=== PATIENT | male | born 1950 | race Caucasian/White ===

== ENCOUNTER 2017-02-16 18:38 | Emergency (ER) | payer MEDICARE, OTHER ==
[2017-02-16] MEDS ORDERED: Diphtheria,Pertussis(Acell),Tetanus Vaccine 0.5 ML Syringe IM ONE (19:07)
--- NOTE | 2017-02-16 19:15 | EDM.PDOC ---
ED HPI GENERAL MEDICAL PROBLEM - General Chief Complaint: Laceration Stated Complaint: cut left thumb Time Seen by Provider: 02/16/17 18:45 Source of Information: Reports: Patient History Limitations: Reports: No Limitations - History of Present Illness INITIAL COMMENTS - FREE TEXT/NARRATIVE: Patient in after cutting his left thumb with the buckle on a tie down. He denies numbness or tingling to the thumb. He has no other complaints. Last tetanus in 2009 per his report. Onset: Today Severity: Mild Improves with: Reports: Cold Therapy Associated Symptoms: Reports: No Other Symptoms - Related Data Allergies Allergy/AdvReac Type Severity Reaction Status Date / Time meloxicam [From Mobic] Allergy Rash Verified 02/16/17 19:08 Home Meds: Home Meds . [Unable to Verify Home Med List] 02/16/17 [History] ED ROS GENERAL - Review of Systems Review Of Systems: See Below Constitutional: Reports: No Symptoms HEENT: Reports: No Symptoms Respiratory: Reports: No Symptoms Cardiovascular: Reports: No Symptoms Endocrine: Reports: No Symptoms GI/Abdominal: Reports: No Symptoms : Reports: No Symptoms Musculoskeletal: Reports: No Symptoms Skin: Reports: Wound Neurological: Reports: No Symptoms Psychiatric: Reports: No Symptoms Hematologic/Lymphatic: Reports: No Symptoms Immunologic: Reports: No Symptoms ED EXAM, GENERAL - Physical Exam Exam: See Below Exam Limited By: No Limitations General Appearance: Alert, WD/WN, No Apparent Distress Extremities: Normal Inspection, Normal Range of Motion, Non-Tender, No Pedal Edema, Normal Capillary Refill Neurological: Alert, Oriented, CN II-XII Intact, Normal Cognition, Normal Gait, Normal Reflexes, No Motor/Sensory Deficits Skin Exam: Wound/Incision (2 cm linear wound) ED GENERAL MEDICAL PROCEDURES - Laceration/Wound Repair Left Proximal Finger Lac/wound length in cm: 2 (left proximal thumb) Appearance: Linear Distal NVT: Neuro & Vascular Intact, No Tendon Injury Anesthetic Type: Local Local Anesthesia - Lidocaine (Xylocaine): 1% Plain Local Anesthetic Volume: 4cc Skin Prep: Chlorhexidine (Hibiciens) Exploration/Debridement/Repair: Wound Explored, in a Bloodless Field, Explored to Base, No Foreign Material Found Closed with: Sutures Suture Size: 4-0 # of Sutures: 5 Suture Type: Interrupted Sterile Dressing Applied: Nurse Tetanus Status Addressed: Yes Complications: No Course - Orders/Labs/Meds Meds: Medications Discontinued Medications Generic Name Dose Route Start Last Admin Trade Name Kiah PRN Reason Stop Dose Admin Diphtheria/Tetanus/Acell Pertussis 0.5 ml 02/16/17 19:07 Adacel IM 02/16/17 19:08 .ONCE ONE Lidocaine HCl 5 ml 02/16/17 18:47 02/16/17 18:55 Xylocaine-Mpf 1% INJECT 02/16/17 18:48 5 ml ONETIME ONE Administration Departure - Departure Time of Disposition: 19:16 Disposition: Home, Self-Care 01 Clinical Impression: Laceration of left thumb without complication - Discharge Information Instructions: Laceration Care, Adult, [id number], Wound Infection, Easy-to- Read Additional Instructions: Keep your wound clean and dry. You may shower and wash it with soap and water. Do not submerge in water including dishwater, bathtub, hot tub, any bodies of water or swimming pools. This will introduce bacteria into the wound. Have the sutures removed in 10 days. Signs of infection have been included with your paperwork but can include fever over 101.5F, chills, increased redness, swelling, warmth to the wound site, pus like drainage from the site. Your tetanus site may become sore tomorrow and have some site redness from the injection Please follow up with your primary doctor as needed Call us with any questions or concerns. - Problem List & Annotations (1) Laceration of left thumb without complication SNOMED Code(s): 877883109 Code(s): S61.012A - LACERATION W/O FB OF LEFT THUMB W/O DAMAGE TO NAIL, INIT Status: Acute Priority: Low Qualifiers: Encounter type: initial encounter Qualified Code(s): S61.012A - Laceration without foreign body of left thumb without damage to nail, initial encounter - Assessment/Plan Assessment:: left thumb laceration Plan: Keep your wound clean and dry. You may shower and wash it with soap and water. Do not submerge in water including dishwater, bathtub, hot tub, any bodies of water or swimming pools. This will introduce bacteria into the wound. Have the sutures removed in 10 days. Signs of infection have been included with your paperwork but can include fever over 101.5F, chills, increased redness, swelling, warmth to the wound site, pus like drainage from the site. Your tetanus site may become sore tomorrow and have some site redness from the injection Please follow up with your primary doctor as needed Call us with any questions or concerns.
[2017-02-16 19:17] VITALS: BP 121/75
== END 2017-02-16 19:24 | disposition home or self-care (01) ==
LOC: VM.ED 18:38
DX: S61.012A Laceration without foreign body of left thumb without damage to nail, initial encounter (principal); Z88.8 Allergy status to other drugs, medicaments and biological substances; W45.8XXA Other foreign body or object entering through skin, initial encounter
CPT/HCPCS: 12001; 90471; 90715; 99282-GF-25; 99283

== ENCOUNTER 2021-01-16 17:11 | Emergency (ER) | payer MEDICARE, OTHER ==
[2021-01-16] MEDS ORDERED: Lidocaine 1% 30 ML SDV INJECT ONE (17:27)
[2021-01-16 17:53] VITALS: BP 110/54; PULSE 82
--- NOTE | 2021-01-16 18:59 | EDM.PDOC ---
ED HPI GENERAL MEDICAL PROBLEM - General Chief Complaint: Laceration Stated Complaint: LACERATION TO FINGER Time Seen by Provider: 01/16/21 17:20 Source of Information: Reports: Patient History Limitations: Reports: No Limitations - History of Present Illness INITIAL COMMENTS - FREE TEXT/NARRATIVE: Pt. presents to ER with complaints of laceration to lateral aspect of 5th digit R hand. Pt. states that he sustained the injury hammering in fence posts at his home. Pt. states that tetanus is up to date. Denies any numbness/tingling in distal portion of the extremity and denies any injury elsewhere. Onset: Today Onset Date: 01/16/21 Location: Reports: Upper Extremity, Right Severity: Mild Left Finger-Little Pain Score (Numeric/FACES): 5 - Related Data Allergies Allergy/AdvReac Type Severity Reaction Status Date / Time meloxicam [From MobNanoAntibiotics] Allergy Rash Verified 01/16/21 17:48 Home Meds: Home Meds . [Unable to Verify Home Med List] 02/16/17 [History] Past Medical History Cardiovascular History: Reports: High Cholesterol, Hypertension Musculoskeletal History: Reports: Back Pain, Chronic - Infectious Disease History Infectious Disease History: Reports: None - Past Surgical History HEENT Surgical History: Reports: Adenoidectomy, Tonsillectomy GI Surgical History: Reports: Appendectomy Musculoskeletal Surgical History: Reports: Other (See Below) Other Musculoskeletal Surgeries/Procedures:: neck fusion. elbow dislocation Social & Family History - Tobacco Use Tobacco Use Status *Q: Never Tobacco User ED ROS GENERAL - Review of Systems Review Of Systems: See Below Constitutional: Reports: No Symptoms HEENT: Reports: No Symptoms Respiratory: Reports: No Symptoms Cardiovascular: Reports: No Symptoms Endocrine: Reports: No Symptoms GI/Abdominal: Reports: No Symptoms : Reports: No Symptoms Musculoskeletal: Reports: Other (See HPI) Skin: Reports: No Symptoms Neurological: Reports: No Symptoms Psychiatric: Reports: No Symptoms Hematologic/Lymphatic: Reports: No Symptoms Immunologic: Reports: No Symptoms ED EXAM, SKIN/RASH Exam: See Below Exam Limited By: No Limitations General Appearance: Alert, WD/WN, No Apparent Distress Extremities: Normal Range of Motion, Normal Capillary Refill, Other (3 cm laceration to lateral aspect R little finger. CMS intact. ROM is within normal limits.) ED SKIN PROCEDURES - Laceration/Wound Repair Right Lateral Digit - 5th (Baby) Appearance: Subcutaneous Distal NVT: Neuro & Vascular Intact Local Anesthesia - Lidocaine (Xylocaine): 1% Plain Local Anesthetic Volume: 4cc Skin Prep: Chlorhexidine (Hibiciens), Saline Saline Irrigation (cc's): 1,000 Exploration/Debridement/Repair: Wound Explored Closed with: Sutures Lac/Wound length In cm: 3 Suture Size: 5-0 # of Sutures: 4 Suture Type: Nylon Course - Vital Signs Last Recorded V/S: Last Vital Signs Temp 36.9 C 01/16/21 17:15 Pulse 82 01/16/21 17:15 Resp 16 01/16/21 17:15 BP 110/54 L 01/16/21 17:15 Pulse Ox 94 L 01/16/21 17:15 - Orders/Labs/Meds Meds: Medications Discontinued Medications Generic Name Dose Route Start Last Admin Trade Name Kiah PRN Reason Stop Dose Admin Lidocaine HCl 30 ml 01/16/21 17:27 01/16/21 17:35 Lidocaine 1% 30 Ml Sdv INJECT 01/16/21 17:28 30 ml ONETIME ONE Administration Departure - Departure Time of Disposition: 19:05 Disposition: Home, Self-Care 01 Clinical Impression: Laceration - Discharge Information Instructions: Laceration Care, Adult Referrals: Susana Lieberman MD [Primary Care Provider] - Forms: ED Department Discharge Additional Instructions: Sutures out in 12-14 days. These can be removed in the clinic. Keep dressing on and laceration dry for 48 hours. Then, keep open to air as much as possible. Cover if you anticipate the area getting dirty. Return to ER/follow-up in clinic if you have any redness, swelling, or discharge from the area. Sepsis Event Note (ED) - Evaluation Sepsis Screening Result: No Definite Risk - Focused Exam Vital Signs: Vital Signs Temp Pulse Resp BP Pulse Ox 01/16/21 17:15 36.9 C 82 16 110/54 L 94 L - Problem List Review Problem List Initiated/Reviewed/Updated: Yes - Assessment/Plan Plan: Sutures out in 12-14 days. These can be removed in the clinic. Keep dressing on and laceration dry for 48 hours. Then, keep open to air as much as possible. Cover if you anticipate the area getting dirty. Return to ER/follow-up in clinic if you have any redness, swelling, or discharge from the area.
== END 2021-01-16 18:05 | disposition home or self-care (01) ==
LOC: VM.ED 17:11
DX: S61.216A Laceration without foreign body of right little finger without damage to nail, initial encounter (principal); I10 Essential (primary) hypertension; Z88.6 Allergy status to analgesic agent; W26.8XXA Contact with other sharp object(s), not elsewhere classified, initial encounter
CPT/HCPCS: 12002; 99282-25; 99283